=== PATIENT | male | born 1975 | race African-American/Black ===

== ENCOUNTER 2023-09-21 16:41 | Inpatient (IN) | payer OTHER ==
--- OUTSIDE RECORDS SUMMARY | 2023-09-21 16:44 | XMS REPORT | Continuity of Care Document ---
Author Name Unknown Address [address] [facility]. [address] [place] [address] [facility] thconnect Address [address] [facility] [address] [place] [address] Care Team Providers Care Actuarial Intern Name Role Phone ADELA KRUGER Attending Clinician Unavailable LIANE RICKS Attending Clinician Unavailable Ronda Cagle MD Attending Clinician [phone] RONDA CAGLE Attending Clinician Unavail able Only, Adc Test Attending Clinician Unavailable Liane Ricks MD Attending Clinician [phone] Doctor Unassigned, [place] Attending Clinician U navailable Gramm BAROMETERS CALIBRATOR, Evelin A Attending Clinician [phone] Daniel PAC, K Omar Attending Clinician [phone] Andrea Awad MD Attending Clinician [phone] Vikram Pichardo Attending Clinician [phone] LIANE RICKS Admitting Clinician Unavailable Ronda Cagle MD Admitting Clinician [phone] Andrea Awad MD Admitting Clinician [phone] Payers Payer Name Policy Type Policy Number Effective Date Expirati on Date Source [employer] [id number] 2017 00:00:00 AETNA 53 [id number] Common Sp ana - [facility] Problems Condition Name Condition Details Condition Category Status Onset Date Resolution Date Last Treatment Date Treating Clinician Comments Source Family history of colon cancer Family history of colon cancer Disease Active 4 00:00: 00 Overview: Formattin g of this note might be different from the original. Added automatic ally from request for surgery [id number] [facility] Perianal abscess Perianal abscess Disease Active 3- 00:00: 00 [facility] No known active problems No known active problems Disease [facility] Family history of prostate cancer Family history of malignant neoplasm of prostate Problem [facility] [place] of epididymis , single Problem [facility] [id number] Hydrocepha locele Problem [facility] Allergies, Adverse Reactions, Alerts Allergy Name Allergy Type Status Severity Reaction(s) Onset Date Inactive Date Treating Clinician Comments Source NO KNOWN ALLERGIE S Drug Class Active [facility] Social History Social Habit Start Date Stop Date Quantity Comments Source Exposure to SARS-CoV-2 (event) Not sure [facility] History of Tobacco Use Current Smoker [facility] Sex Assigned At [facility] Tobacco use and exposure 2020-12-28 00:00:00 2020-12-28 00:00:00 Never used [facility] Smoking Status Start Date Stop Date Source Current Smoker 2023-08-13 00:00:00 [facility] Unknown if ever smoked [facility] Medications Ordered Medication Name Filled Medication Name Start Date Stop Date Current Medication? Ordering Clinician Indication Dosage Frequency Signature (SIG) Comments Components Source simethicone (GAS RELIEF (SIMETHICON E)) 40 mg/0.6 mL drops 10-26 16:40: 00 10-26 20:02 :37 No PRN, Starting Thu10/26/20 at 1140, Until Thu10/26/20 at 1502, Routine, Intra-op [facility] pantoprazol e (PROTONIX) EC tablet 40 mg 09-04 14:00: 00 Yes 40mg 40 mg, Oral, DAILY, First dose on Thu09/04/20 at 0900, Until Discontinu ed, Routine [facility] acetaminoph en 500 mg tablet 09-04 00:00: 00 Yes [id number] 500mg Take 1 tablet by mouth every 8 (eight) hours as needed for Pain. [facility] amoxicillin -clavulanat e (AUGMENTIN) 875-125 mg per tablet 09-04 00:00: 00 09-15 04:59 :00 No [id number] 1{tbl} Take 1 tablet by mouth 2 (two) times daily for 10 days. [facility] HYDROcodone -acetaminop hen 10-325 mg tablet 09-04 00:00: 00 09-12 04:59 :00 No [id number] 1{tbl} Take 1 tablet by mouth every 6 (six) hours as needed for Pain (scale 7-10) for up to 7 days. Indication s: acute pain [facility] ibuprofen 800 mg tablet 09-04 00:00: 00 09-08 04:59 :00 No [id number] 800mg Take 1 tablet by mouth 3 (three) times daily with meals for 3 days. [facility] ibuprofen (IBU) tablet 800 mg 09-03 22:00: 00 Yes 800mg 800 mg, Oral, TID MEALS, First dose on Thu09/03/20 at 1700, Until Discontinu ed, Routine [facility] NaCl 0.9% (NS) IV infusion 1,000 mL 09-03 18:30: 00 09-04 17:58 :11 No 1000mL at 42 mL/hr, IV Infusion, CONTINUOUS , Starting Thu09/03/20 at 1330, Until Thu09/04/20 at 1258, Routine [facility] HYDROcodone -acetaminop hen (NORCO) 10-325 mg tablet 1 tablet 09-03 18:22: 30 Yes 1{tbl} 1 tablet, Oral, Q6HPRN, Starting Thu09/03/20 at 1322, Until Discontinu ed, Routine, Pain (scale 4-6) [facility] acetaminoph en (TYLENOL) tablet 500 mg 09-03 18:20: 26 Yes 500mg 500 mg, Oral, Q6HPRN, Starting Thu09/03/20 at 1320, Until Discontinu ed, Routine, Pain (scale 1-3) [facility] piperacilli n-tazobacta m (ZOSYN) 3.375 g in NaCl 0.9% (NS) 100 mL MINI-BAG 09-03 14:00: 00 Yes 3.375g 3.375 g, IV Piggyback, Q6H ABX, First dose (after last reorder) on Thu09/03/20 at 0900, Until Discontinu ed, 100 mL
Reas on for Anti-Infec tive: Documented Infection< br>Documen luke Infection Site: Skin / Soft Tissue
Duration of Therapy: 10 days [facility] enoxaparin (LOVENOX) injection 40 mg 09-03 14:00: 00 Yes 40mg 40 mg, Subcutaneo us, DAILY, First dose on Thu09/03/20 at 0900, Until Discontinu ed, [facility] sennos[facility]- docusate sodium (SENOKOT-S) 8.6-50 mg per tablet 1 tablet 09-03 13:00: 00 Yes 1{tbl} 1 tablet, Oral, BID, First dose on Thu09/03/20 at 0800, Until Discontinu ed, Routine [facility] ampicillin- sulbactam (UNASYN) 3 g in NaCl 0.9% (NS) 100 mL MINI-BAG 09-03 07:00: 00 09-03 12:46 :53 No 3g 3 g, IV Piggyback, Q6H ABX, First dose on Thu09/03/20 at 0200, Until Discontinu ed, 100 mL
Reas on for Anti-Infec tive: Empiric Therapy for Suspected Infection< br>Empiric Therapy Site: Skin / Soft tissue
Duration of therapy: 7 days [facility] nicotine (NICODERM) 21 mg/24 hr patch 1 Patch 09-03 05:00: 00 Yes 1{patch } 1 Patch, Topical, Administer over 24 Hours, Q24H, First dose on Thu09/03/20 at 0000, Until Discontinu ed, Routine [facility] NaCl 0.9% (NS) IV infusion 1,000 mL 09-03 04:00: 00 09-03 18:21 :55 No 1000mL at 125 mL/hr, IV Infusion, CONTINUOUS , Starting [place] 09/02/20 at 2300, Until Thu09/03/20 at 1321, Routine [facility] ondansetron (ZOFRAN (PF)) injection 4 mg 09-03 03:49: 14 Yes 4mg 4 mg, Slow IV Push, Q6HPRN, Starting [place] 09/02/20 at 2249, Until Discontinu ed, Routine, Nausea and Vomiting (N/V) [facility] HYDROcodone -acetaminop hen (NORCO 5) 5-325 mg tablet 1 tablet 09-03 03:49: 01 09-03 18:22 :43 No 1{tbl} 1 tablet, Oral, Q6HPRN, Starting [place] 09/02/20 at 2249, Until Thu09/03/20 at 1322, Routine, Pain (scale 4-6) [facility] morpHINE injection 4 mg 09-03 00:45: 00 09-02 23:38 :00 No 4mg 4 mg, Slow IV Push, ONCE, 1 dose, [place] 09/02/20 at 1945, STAT [facility] piperacilli n-tazobacta m (ZOSYN) 3.375 g in NaCl 0.9% (NS) 100 mL MINI-BAG 09-03 00:30: 00 09-03 00:03 :00 No 3.375g 3.375 g, IV Piggyback, ONCE, 1 dose, [place] 09/02/20 at 1930, 100 mL
Reas on for Anti-Infec tive: Documented Infection< br>Documen luke Infection Site: Skin / Soft Tissue
Duration of Therapy: 10 days [facility] iohexol (OMNIPAQUE 350 BULK-150 mL) injection 120 mL 09-02 22:15: 00 09-02 22:00 :00 No [id number] 120mL 120 mL, Intravenou s, ONCE, 1 dose, [place] 09/02/20 at 1715, Routine [facility] ondansetron (ZOFRAN (PF)) injection 4 mg 09-02 21:45: 00 09-02 20:52 :00 No 4mg 4 mg, Slow IV Push, ONCE, 1 dose, 09/02/20 at 1645, JESSICA [facility] morpHINE injection 4 mg 09-02 21:45: 00 09-02 20:52 :00 No 4mg 4 mg, Slow IV Push, ONCE, 1 dose, [place] 09/02/20 at 1645, STAT [facility] diazePAM (VALIUM) tablet 5 mg 08-22 05:30: 00 08-22 04:40 :00 No 5mg 5 mg, Oral, ONCE, 1 dose, Thu08/22/20 at 0030, JESSICA [facility] predniSONE (DELTASONE) tablet 40 mg 08-22 05:30: 00 08-22 04:40 :00 No 40mg 40 mg, Oral, ONCE, 1 dose, Thu08/22/20 at 0030, JESSICA [facility] ketorolac (TORADOL) injection 30 mg 08-22 05:30: 00 08-22 04:40 :00 No 30mg 30 mg, Intramuscu lar, ONCE, 1 dose, Thu08/22/20 at 0030, JESSICA
Fa culty member approving Restricted medication : VIKRAM REYES [facility] methocarbam oL 500 mg tablet 08-21 00:00: 00 Yes [id number] 500mg Take 1 tablet by mouth 4 (four) times daily. [facility] naproxen 500 mg tablet 08-21 00:00: 00 09-04 00:00 :00 No [id number] 500mg Take 1 tablet by mouth 2 (two) times daily with meals. [facility] predniSONE 20 mg tablet 16 00:00: 00 08-26 04:59 :00 No [id number] 20mg Take 1 tablet by mouth 2 (two) times daily for 4 days. [facility] fenofibrate micronized 134 mg capsule 12-23 00:00: 00 08-21 00:00 :00 No [id number] 134mg Take 134 mg by mouth daily. [facility] No Known Medications No Known Medications No [facility] No Known Medications No Known Medications No [facility] Vital Signs Vital Name Observation Time Observation Value Comments S ource height 2023-08-13 15:45:00 75 [in_i] Commo n [facility] weight 2023-08-13 15:45:00 224.4 [lb_av] Co [facility] temperature 2023-08-13 15:45:00 98.3 [degF] Com [facility] bmi 2023-08-13 15:45:00 28.05 kg/m2 Comm on [facility] oximetry 2023-08-13 15:45:00 93 % Commo n [facility] respiratory rate 2023-08-13 15:45:00 18 /min [facility] blood pressure systolic 2023-08-13 15:45:00 137 mm[Hg] [facility] blood pressure diastolic 2023-08-13 15:45:00 72 mm[Hg] [facility] height 2023-06-17 09:30:00 75 [in_i] Commo n [facility] weight 2023-06-17 09:30:00 231.2 [lb_av] Co [facility] temperature 2023-06-17 09:30:00 98.5 [degF] Com [facility] bmi 2023-06-17 09:30:00 28.89 kg/m2 Comm on [facility] oximetry 2023-06-17 09:30:00 98 % Commo n [facility] respiratory rate 2023-06-17 09:30:00 18 /min Common [facility] blood pressure systolic 2023-06-17 09:30:00 126 mm[Hg] [facility] blood pressure diastolic 2023-06-17 09:30:00 69 mm[Hg] [facility] Systolic blood pressure 2020-12-28 15:25:00 126 mm[Hg] [facility] Diastolic blood pressure 2020-12-28 15:25:00 80 mm[Hg] [facility] Heart rate 2020-12-28 15:25:00 85 /min [facility] Body temperature 2020-12-28 15:25:00 36.28 Leonela [facility] Respiratory rate 2020-12-28 15:25:00 14 /min [facility] Body weight 2020-12-28 15:25:00 106.142 kg [facility] BMI 2020-12-28 15:25:00 29.25 kg/m2 [facility] Oxygen saturation in Arterial blood by Pulse oximetry 2020-12-28 15:25:00 98 /min [facility] Systolic blood pressure 2020-10-26 17:37:00 116 mm[Hg] [facility] Diastolic blood pressure 2020-10-26 17:37:00 71 mm[Hg] [facility] Heart rate 2020-10-26 17:37:00 78 /min [facility] Respiratory rate 2020-10-26 17:37:00 16 /min [facility] Oxygen saturation in Arterial blood by Pulse oximetry 2020-10-26 17:37:00 99 /min [facility] Body temperature 2020-10-26 17:03:00 36.11 Leonela [facility] Body height 2020-10-11 16:12:00 190.5 cm [facility] Body weight 2020-10-11 16:12:00 104.5 kg [facility] BMI 2020-10-11 16:12:00 28.80 kg/m2 [facility] Systolic blood pressure 2020-10-26 17:03:00 91 mm[Hg] [facility] Diastolic blood pressure 2020-10-26 17:03:00 53 mm[Hg] [facility] Heart rate 2020-10-26 17:03:00 87 /min [facility] Body temperature 2020-10-26 17:03:00 36.11 Leonela [facility] Respiratory rate 2020-10-26 17:03:00 12 /min [facility] Oxygen saturation in Arterial blood by Pulse oximetry 2020-10-26 17:03:00 94 /min [facility] Body height 2020-10-11 16:12:00 190.5 cm [facility] Body weight 2020-10-11 16:12:00 104.5 kg [facility] BMI 2020-10-11 16:12:00 28.80 kg/m2 [facility] Systolic blood pressure 2020-09-24 14:57:00 115 mm[Hg] [facility] Diastolic blood pressure 2020-09-24 14:57:00 82 mm[Hg] [facility] Heart rate 2020-09-24 14:57:00 96 /min [facility] Body temperature 2020-09-24 14:57:00 37 Leonela [facility] Respiratory rate 2020-09-24 14:57:00 18 /min [facility] Body height 2020-09-24 14:57:00 190.5 cm [facility] Body weight 2020-09-24 14:57:00 104.509 kg [facility] BMI 2020-09-24 14:57:00 28.80 kg/m2 [facility] Systolic blood pressure 2020-09-04 16:15:00 140 mm[Hg] [facility] Diastolic blood pressure 2020-09-04 16:15:00 75 mm[Hg] [facility] Heart rate 2020-09-04 16:15:00 81 /min [facility] Body temperature 2020-09-04 16:15:00 36.11 Leonela [facility] Respiratory rate 2020-09-04 16:15:00 18 /min [facility] Oxygen saturation in Arterial blood by Pulse oximetry 2020-09-04 16:15:00 99 /min [facility] Body height 2020-09-03 01:43:00 190.5 cm [facility] Body weight 2020-09-03 01:43:00 104.599 kg [facility] BMI 2020-09-03 01:43:00 28.82 kg/m2 [facility] Systolic blood pressure 2020-08-22 04:06:00 142 mm[Hg] [facility] Diastolic blood pressure 2020-08-22 04:06:00 89 mm[Hg] [facility] Heart rate 2020-08-22 04:06:00 96 /min [facility] Body temperature 2020-08-22 04:06:00 37.11 Leonela [facility] Respiratory rate 2020-08-22 04:06:00 18 /min [facility] Body height 2020-08-22 04:06:00 190.5 cm [facility] Body weight 2020-08-22 04:06:00 104.327 kg [facility] BMI 2020-08-22 04:06:00 28.75 kg/m2 [facility] Oxygen saturation in Arterial blood by Pulse oximetry 2020-08-22 04:06:00 98 /min [facility] Procedures Procedure Date / Time Performed Performing Clinician Source PVR 2023-06-17 00:00:00 Common S [facility] COLONOSCOPY (ENDO) 2020-10-26 16:26:44 Kurtis Enriquez [facility] COLONOSCOPY 2020-10-26 16:17:00 Ronda Cagle [facility] ASSIGNMENT OF BENEFITS 2020-10-25 15:22:40 Docto r Unassigned, [place] [facility] ASSIGNMENT OF BENEFITS 2020-09-24 14:42:05 Docto r Unassigned, [place] [facility] INCISION AND DRAINAGE RECTAL ABSCESS 2020-09-03 15:58:00 Jeffrey Medellin [facility] US RETROPERITONEAL COMPLETE 2020-09-03 14:50:55 Cory Calloway [facility] WOUND CULTURE 2020-09-03 09:17:00 Cory Calloway [facility] BASIC METABOLIC PANEL (NA, K, CL, CO2, GLUCOSE, BUN, CREATININE, CA) 2020-09-03 07:29:00 Cory Calloway [facility] CBC WITH DIFF 2020-09-03 07:29:00 Cory Calloway [facility] URINALYSIS 2020-09-03 05:05:00 Cory Calloway [facility] URINE CULTURE 2020-09-03 05:05:00 Cory Calloway [facility] CREATININE, URINE RANDOM 2020-09-03 05:05:00 Richar Calloway [facility] SODIUM, URINE RANDOM 2020-09-03 05:05:00 Cory Calloway [facility] COVID-19 (ID NOW RAPID TESTING) 2020-09-02 23:34:00 Juju Crow [facility] LAB ONLY COVID INTERPRETATION 2020-09-02 23:34:00 Juju Crow [facility] CT ABDOMEN PELVIS W CONTRAST 2020-09-02 22:03:25 Juju Crow [facility] COMP. METABOLIC PANEL ([id number]) 2020-09-02 20:51:00 Juju Crow [facility] CBC WITH DIFF 2020-09-02 20:51:00 Juju Crow [facility] NOTICE OF PRIVACY PRACTICES 2020-09-02 18:05:58 Doctor Unassigned, [place] [facility] CONSENT/REFUSAL FOR DIAGNOSIS AND TREATMENT 2020-09-02 18:02:30 Doctor Unassigned, [place] [facility] NOTICE OF PRIVACY PRACTICES 2020-08-22 04:01:54 Doctor Unassigned, [place] [facility] CONSENT/REFUSAL FOR DIAGNOSIS AND TREATMENT 2020-08-22 03:59:38 Doctor Unassigned, [place] [facility] Encounters Start Date/Time End Date/Time Encounter Type Admission Type Attending Clinicians Care Facility Care Department Encounter ID Source 2023-06-17 08:49:01 Outpatient ADELA KRUGER [facility] [id number] [facility] 2021-04-07 15:20:12 Outpatient RICKSLIANE KLEIN [facility] DAIANA [id number] [facility] 2021-04-07 09:01:47 Emergency [facility] [id number] [facility] 2021-04-07 06:29:50 Emergency [facility] [id number] [facility] 2023-08-13 00:00:00 2023-08-13 00:00:00 OFFICE VISIT ESTAB PT LEVEL 3 [facility] [id number] [facility] 2023-06-17 00:00:00 2023-06-17 00:00:00 OFFICE VISIT NEW PT [facility]EVEL 3 [facility] [id number] [facility] 2020-12-28 10:12:48 2020-12-28 11:29:14 Office Visit Ronda Cagle [facility] [id number] [facility] 2020-12-28 10:15:00 2020-12-28 10:15:00 Outpatient RONDA ANDREW [facility] [id number] [facility] 2020-10-26 08:47:00 2020-10-26 13:02:00 Hospital Encounter Ronda Cagle [facility] [id number] [facility] 2020-10-26 11:00:00 2020-10-26 12:07:00 Surgery Ronda Cagle [facility] [id number] [id number] [facility] 2020-10-25 10:22:14 2020-10-25 10:37:14 Laboratory Only Only, Adc Test Liane Ricks [facility] [id number] [id number] [id number] [facility] 2020-10-25 08:15:00 2020-10-25 08:15:00 Outpatient R LIANE RICKS [facility] [id number] [facility] 2020-10-25 00:00:00 2020-10-25 00:00:00 Orders Only Doctor Unassigned, [place] [facility] [id number] [id number] [id number] [facility] 2020-10-23 00:00:00 2020-10-23 00:00:00 Prep For Surgery Evelin Matthews [facility] [id number] 4.2.7.2.686 [id number] [facility] 2020-10-23 00:00:00 2020-10-23 00:00:00 Telephone Evelin Matthews [facility] [id number] 4.2.7.2.686 [id number] [facility] 2020-09-25 00:00:00 2020-09-25 00:00:00 Prep For Surgery Evelin Matthews [facility] [id number] [id number] 4.2.7.2.686 [id number] [facility] 2020-09-24 09:42:29 2020-09-24 10:15:16 Office Visit Liane Ricks [facility] [id number] [id number] 4.2.7.2.686 [id number] [facility] 2020-09-24 09:45:00 2020-09-24 09:45:00 Outpatient R LIANE RICKS [facility] [id number] [facility] 2020-09-24 00:00:00 2020-09-24 00:00:00 Orders Only Doctor Unassigned, [place] [facility] [id number] [id number] 4.2.7.2.686 [id number] [facility] 2020-09-02 13:12:00 2020-09-04 14:47:00 Emergency Juju Crow Yaman [facility] [id number] [id number] 4.2.7.2.686 [id number] [facility] 2020-08-21 23:09:00 2020-08-21 23:59:00 Emergency Vikram Reyes Anahy [facility] [id number] [id number] 4.2.7.2.686 [id number] [facility] Results Test Description Test Time Test Comments Results Result Co mments Source [facility] [id number] 21:51:06COVID DMT InterpretationInterpretation/Recommendations: Molecular NAAT Tests for Active Infection with the SARS-CoV-2 Virus: The patient has currently tested negative for the SARS-CoV-2 virus that causes COVID-19 illness. This most likely indicates that the patient does not have an active infectionwith the SARS-CoV-2 virus. However, infection is not completely ruled out as the false negative rate for molecular NAAT testing using a nasopharyngeal sample can be up to 30%, mostly dependent on thetiming of sample collection in relation to illness onset and any deficiencies in sampling techniques. If the patient has symptoms concerning for COVID-19 illness, a repeat NAAT test (PCR, Rapid ID Now, etc.) should be performed, at which time the SARS-CoV-2 virus - if present - may have reached a detectable viral load (usually peaking by the end of the first week of symptoms). Tests for IgM and/or IgG Antibodies to the SARS-CoV-2 Virus: If the patient develops COVID-19 illness in the future, testing for IgM and IgG antibodies approximately 3 weeks after illness onset will likely indicate if the patient has produced antibodies to the SARS-CoV-2 virus. However, some patients may take longer to develop detectable antibodies, while some patients who were infected with SARS-CoV-2 may never develop antibodies. While antibodies to SARS-CoV-2 may provide some degree of immunity, at this time the strength and duration of the antibody response is unknown. ? ? Interpretation Result Comments:These interpretation comments are based upon all COVID-19 testing the patient has had at [facility], including molecular NAAT testing (more commonly known as PCR testing and Rapid ID Now testing) and antibody testing. It does not take into account any testing that a patient has had outside of the [facility] medical record. [facility] LABORATORY SERVICESCOVID [id number] Rapid ID NOW (no units) ? ? Date ? Value ? 09/02/2020 ? Not Detected ? [facility]OR[facility] SERVICESUnMethodist [facility] CenterUS RETROPERITONEAL [id number] 15:03:35Unremarkable renal ultrasound. No hydronephrosis or nephrolithiasis.ULTRASOUND RENAL INDICATION: JIN COMPARISON: 09/02/2020. Technique: Real-time grayscale and color Doppler evaluation ofretroperitoneal special attention paid to the kidneys and urinary bladder. FINDINGS: Right kidney measures 10.8 x5.0 x 5.2 cm. There is normal renal corticalechogenicity and corticomedullary differentiation. Few subcentimeterhypoattenuating lesions seen on same-day CT are not apparentsonographically. No hydronephrosis or renal calculi. There is qualitativelynormal perfusion on color doppler interrogation. Left kidney measures 10.7 x 5.7 x 4.8 cm. Few subcentimeter hypoattenuatinglesions seen on same-day CT are not apparent sonographically. There isnormal renal cortical echogenicity and corticomedullary differentiation. Nohydronephrosis or renal calculi. There is qualitatively normal perfusion oncolor doppler interrogation. Urinary bladder is normal for the degree of distention. [facility], Radiant Results Inft User - 09/03/2020 10:04 AM CDTULTRASOUND RENALINDICATION: AKICOMPARISON: 09/02/2020.Technique: Real-time grayscale and color Doppler evaluation ofretroperitoneal special attention paid to the kidneys and urinary bladder.FINDINGS:Right kidney measures 10.8 x 5.0 x 5.2 cm. There is normal renal corticalechogenicity and corticomedullary differentiation. Few subcentimeterhypoattenuating lesions seen on same-day CT are not apparentsonographically. No hydronephrosis or renal calculi. There is qualit ativelynormal perfusion on color doppler interrogation.Left kidney measures 10.7 x 5.7 x 4.8 cm. Few subcentimeter hypoattenuatinglesions seen on same-day CT are not apparent sonographically. There isnormal renal cortical echogenicity and corticomedullary differentiation. Nohydronephrosis or renal calculi. There is qualitatively normal perfusion oncolor doppler interrogation.Urinary bladder is normal for the degree of distention.IMPRESSIONUnremarkable renal ultrasound. No hydronephrosis or nephrolithiasis.[facility] (NA, K, CL, CO2, GLUCOSE, BUN, CREATININE, CA)2020-09-03 09:28:53* Test Item Value Reference Range Interpretation Comme nts NA (test code = 1802581176) 137 mmol/L 135-145 K (test code = 5356896251) 4.6 mmol/L 3.5-5.0 CL (test code = 9440646556) 105 mmol/L 98-108 CO2 TOTAL (test code = 3319567330) 26 mmol/L 23-31 AGAP (test code = 5030306728) 2-16 BUN (test code = 9503340997) 20 mg/dL 7-23 GLUCOSE (test code = 2907515093) 130 mg/dL 70-110 H CREATININE (test code = 7874671952) 1.19 mg/dL 0.60-1.25 CALCIUM (test code = 8715405008) 9.4 mg/dL 8.6-10.6 eGFR Calculation (Non-) (test code = 2784236047) mL/min/1.73m2 eGFR Calculation () (test code = 6856041660) mL/min/1.73m2 CIPRIANO (test code = CIPRIANO) Association of Glomerular Filtration Rate (GFR) and Staging of Kidney Disease* + --+ --+ ------+| GFR (mL/min/1.73 m2) ?| With Kidney Damage ?| ?Without Kidney Damage+ --------+ --------+ +| ?>90 ?| ?Stage one ?| ? Normal ?+ ---+ ---+ -------+| ?60-89 ?| ?Stage two ?| ? Decreased GFR ? + --+ --+ ------+| ?30-59 ?| ?Stage three ?| ? Stage three ? + --+ --+ ------+| ?15-29 ?| ?Stage four ? | ? Stage four ?+ ---+ ---+ -------+| ?<15 (or dialysis) ? ?| ?Stage five ? | ? Stage five ?+ ---+ ---+ -------+ *Each stage assumes the associated GFR level has been in effect for at least three months. ?Stages 1 to 5, with or without kidney disease, indicate chronic kidney disease. Notes: Determination of stages one and two (with eGFR >59mL/min/1.73 m2) requires estimation of kidney damage for at least three months as defined by structural or functional abnormalities of the kidney, manifested by either:Pathological abnormalities or Markers of kidney damage (including abnormalities in the composition of the blood or urine or abnormalities in imaging tests). Lab Interpretation (test code = 49844-1) Abnormal [facility] with [id number] 09:14:51* Test Item Value Reference Range Interpretation Comme nts WBC (test code = 6690-2) See_Comment [Automated messa ge] The system which generated this result transmitted reference range: 4.20 - 10.70 10*3/?L. The reference range was not used to interpret this result as normal/abnormal. RBC (test code = 789-8) See_Comment L [Automated messa ge] The system which generated this result transmitted reference range: 4.26 - 5.52 10*6/?L. The reference range was not used to interpret this result as normal/abnormal. HGB (test code = 718-7) 12.6 g/dL 12.2-16.4 HCT (test code = 4544-3) 38.1 % 38.4-49.3 L MCV (test code = 787-2) 92.0 fL 81.7-95.6 MCH (test code = 785-6) 30.4 pg 26.1-32.7 MCHC (test code = 786-4) 33.1 g/dL 31.2-35.0 RDW-SD (test code = 09005-7) 47.2 fL 38.5-51.6 RDW-CV (test code = 788-0) 13.8 % 12.1-15.4 PLT (test code = 777-3) See_Comment [Automated messa ge] The system which generated this result transmitted reference range: 150 - 328 10*3/?L. The reference range was not used to interpret this result as normal/abnormal. MPV (test code = 99014-1) 10.2 fL 9.8-13.0 NRBC/100 WBC (test code = 7101133161) See_Comment [Automated Reduce Data ssage] The system which generated this result transmitted reference range: 0.0 - 10.0 /100 WBCs. The reference range was not used to interpret this result as normal/abnormal. NRBC x10^3 (test code = 4889147889) <0.01 See_Comment [Automated messa ge] The system which generated this result transmitted reference range: 10*3/?L. The reference range was not used to interpret this result as normal/abnormal. GRAN MAT (NEUT) % (test code = 770-8) 66.6 % IMM GRAN % (test code = 3479401143) 0.60 % LYMPH % (test code = 736-9) 25.0 % MONO % (test code = 5905-5) 5.6 % EOS % (test code = 713-8) 1.7 % BASO % (test code = 706-2) 0.5 % GRAN MAT x10^3(ANC) (test code = 0138369665) 6.85 10*3/uL 1.99-6.95 IMM GRAN x10^3 (test code = 2541946249) 0.06 10*3/uL 0.00-0.06 LYMPH x10^3 (test code = 731-0) 2.57 10*3/uL 1.09-3.23 MONO x10^3 (test code = 742-7) 0.58 10*3/uL 0.36-1.02 EOS x10^3 (test code = 711-2) 0.17 10*3/uL 0.06-0.53 BASO x10^3 (test code = 704-7) 0.05 10*3/uL 0.01-0.09 Lab Interpretation (test code = 22230-7) [facility] 05[facility]27:01* Test Item Value Reference Range Interpretation Comme nts APPEARANCE (test code = 9190513427) Clear Clear COLOR (test code = 5036044964) Yellow Yellow PH (test code = 3332371054) 4.8-8.0 SP GRAVITY (test code = 8913986504) 1.003-1.030 GLU U QUAL (test code = 7731123373) 100 mg/dL Negative A BLOOD (test code = 7364536063) Negative Negative KETONES (test code = 9636507312) Negative Negative PROTEIN (test code = 2887-8) Negative Negative UROBILIN (test code = 5036358056) 0.2 mg/dL See_Comment [Automated mig33a ge] The system which generated this result transmitted reference range: 0-1.0 mg/dL. The reference range was not used to interpret this result as normal/abnormal. BILIRUBIN (test code = 4498304569) Negative Negative NITRITE (test code = 8773594352) Negative Negative LEUK ZAK (test code = 6735280462) Negative Negative RBC/HPF (test code = 0779204423) See_Comment [Automated mig33a ge] The system which generated this result transmitted reference range: 0 - 3 HPF. The reference range was not used to interpret this result as normal/abnormal. WBC/HPF (test code = 0617937938) See_Comment [Automated mig33a ge] The system which generated this result transmitted reference range: 0 - 5 HPF. The reference range was not used to interpret this result as normal/abnormal. BACTERIA (test code = 4132488595) Negative Negative Lab Interpretation (test code = 28418-3) [facility], URINE [id number] 05:25:16* Test Item Value Reference Range Interpretation Comme nts CREAT U (test code = 6411008709) 73.3 mg/dL [facility] HospitalSODI[facility], URINE [id number] 05:20:55* Test Item Value Reference Range Interpretation Comme nts NA URINE (test code = 8347691971) 71 mmol/L [facility] HospitalCOVID-[facility] (ID NOW RAPID TESTING)2020-09-02 23:58:34* Test Item Value Reference Range Interpretation Comme nts SARS-CoV-2 Rapid ID NOW (test code = 01701-7) Not Detected Not Detected CIPRIANO (test code = CIPRIANO) ID NOW COVID-19 As say is an isothermal nucleic acid amplification test intended for the qualitative detection of nucleic acid from SARS-CoV-2 viral RNA in nasopharyngeal (GEOTHERMAL [employer]LECT[employer]ICAL [employer]ER) specimens. It is used under Emergency Use Authorization (EUA) by FDA. The limit of detection (LOD) of the assay is 125 Genome Equivalents/mL. A positive result is indicative of the presence of SARS-CoV-2 RNA. ?Clinical correlation with patient history and other diagnostic information is necessary to determine patient infection status. A negative (Not Detected) result does not preclude SARS-CoV-2 infection. In patients with clinical symptoms and other tests that are consistent with SARS-CoV-2 infection, negative results should be treated as presumptive negative and a new specimen should be tested with alternative PCR molecular test. Invalid: Please collect a new specimen for repeat patient testing if clinically indicated. Lab Interpretation (test code = 04336-6) Normal [facility]CT [facility] W [id number] 22:45:42Addendum by Dash Walsh MD on 09/02/2020 6:06 PMAddendum: An additional series through the lower pelvis was obtained. Thisseries demonstrates a 3.5 x 2.3 cm peripherally enhancing fluid collectionadjacent to the anus compatible with a perianal abscess. Slight adjacentcellulitic changes are present. No definite involvement of the rectum isidentified. IMPRESSION:1. A 3.5 cm perianal abscess is identified. RL: [address] evidence for acute abnormality within the abdomen and pelvis isvisualized. Specifically, no evidence for acute inflammatory process orappendicitis is present.2. Prominent right inguinal lymph nodesare likely reactive in nature.3. Bilateral renal cysts are present. RL: 2831 ORDERING PHYSICIAN: Juju CROW ABDOMEN AND PELVIS CT WITH INTRAVENOUS CONTRAST. DATE: ?09/02/2020 CLINICAL INDICATIONS: ?Abdominal pain. TECHNIQUE: ?Axialcomputed tomographic images of the abdomen and pelviswere performed after administration of 100 cc of Isovue-[address] scan was performed according to ALARA (As Low as Reasonably Achievable). COMPARISON: ?None. Abdomen findings: The lung bases are clear. The cardiac apex isunremarkable. The liver, spleen, pancreas, gallbladder and adrenal glands have anunremarkable contrast enhanced appearance. Bilateral renal cysts arepresent. The stomach, small bowel and colon demonstrate no evidence for obstructionor inflammation. A normal appendix is present in right lower quadrant. No adenopathy or free fluid are identified in the abdomen. No acute osseousabnormality is demonstrated. Pelvis findings: The small bowel and colon are normal caliber. The urinarybladder demonstrates no abnormality. The prostate gland is within normallimits of size. No free fluid is present in the pelvis. Prominent rightinguinal lymph nodes may be reactive in nature. No acute osseousabnormality is demonstrated. [facility], Radiant Results Inft User - 09/02/2020 5:46 PM CDTORDERING PHYSICIAN: K OMAR BILYEUABDOMENAND PELVIS CT WITH INTRAVENOUS CONTRAST.DATE: 09/02/2020LINICAL INDICATIONS: Abdominal pain.TECHNIQUE: Axial computed tomographic images of the abdomen and pelviswere performed after administration of 100 cc of Isovue-[address] scan was performed according to ALARA (As Low as Reasonably Achievable).COMPARISON: None.Abdomen findings: The lung bases are clear. The cardiac apex isunremarka ble.The liver, spleen, pancreas, gallbladder and adrenal glands have anunremarkable contrast enhanced appearance. Bilateral renal cysts arepresent.The stomach, small bowel and colon demonstrate no evidence for obstructionor inflammation. A normal appendix is present in right lower quadrant.No adenopathy or free fluid are identified in the abdomen. No acute osseousabnormality is demonstrated.Pelvis findings: The small bowel and colon are normal caliber. The urinarybladder demonstrates no abnormality. The prostate gland is within normallimits of size. No free fluid is present in the pelvis. Prominent rightinguinal lymph nodes may be reactive in nature. No acute osseousabnormality is demonstrated.IMPRESSION1. No CT evidence for acute abnormality within the abdomen and pelvis isvisualized. Specifically, no evidence for acute inflammatory process orappendicitis is present.2. Prominent right inguinal lymph nodes are likely reactive in nature.3. Bilateral renal cysts are present.RL: 2831 [facility] METABOLIC PANEL (85163) 2020-09-02 21:41:08* Test Item Value Reference Range Interpretation Comme nts NA (test code = 7040454369) 138 mmol/L 135-145 K (test code = 2882242573) 4.8 mmol/L 3.5-5.0 CL (test code = 1134071781) 102 mmol/L 98-108 CO2 TOTAL (test code = 4865707504) 31 mmol/L 23-31 AGAP (test code = 6791286213) 2-16 BUN (test code = 5997374108) 21 mg/dL 7-23 GLUCOSE (test code = 2726403797) 126 mg/dL 70-110 H CREATININE (test code = 7047019328) 1.47 mg/dL 0.60-1.25 H TOTAL BILI (test code = 8813863546) 0.6 mg/dL 0.1-1.1 CALCIUM (test code = 0228743904) 9.6 mg/dL 8.6-10.6 T PROTEIN (test code = 2403470778) 6.9 g/dL 6.3-8.2 ALBUMIN (test code = 5966577565) 4.3 g/dL 3.5-5.0 ALK PHOS (test code = 1081521302) 69 U/L 34-122 ALTv (test code = 1742-6) 23 U/L 5-50 AST(SGOT) (test code = 4749018485) 24 U/L 13-40 eGFR Calculation (Non-) (test code = 2888960110) mL/min/1.73m2 eGFR Calculation () (test code = 7113607675) mL/min/1.73m2 CIPRIANO (test code = CIPRIANO) Association of Glomerular Filtration Rate (GFR) and Staging of Kidney Disease* + --+ --+ ------+| GFR (mL/min/1.73 m2) ?| With Kidney Damage ?| ?Without Kidney Damage+ --------+ --------+ +| ?>90 ?| ?Stage one ?| ? Normal ?+ ---+ ---+ -------+| ?60-89 ?| ?Stage two ?| ? Decreased GFR ? + --+ --+ ------+| ?30-59 ?| ?Stage three ?| ? Stage three ? + --+ --+ ------+| ?15-29 ?| ?Stage four ? | ? Stage four ?+ ---+ ---+ -------+| ?<15 (or dialysis) ? ?| ?Stage five ? | ? Stage five ?+ ---+ ---+ -------+ *Each stage assumes the associated GFR level has been in effect for at least three months. ?Stages 1 to 5, with or without kidney disease, indicate chronic kidney disease. Notes: Determination of stages one and two (with eGFR >59mL/min/1.73 m2) requires estimation of kidney damage for at least three months as defined by structural or functional abnormalities of the kidney, manifested by either:Pathological abnormalities or Markers of kidney damage (including abnormalities in the composition of the blood or urine or abnormalities in imaging tests). Lab Interpretation (test code = 69393-3) [facility] WITH [id number] 21:22:46* Test Item Value Reference Range Interpretation Comme nts WBC (test code = 6690-2) See_Comment H [Automated messa ge] The system which generated this result transmitted reference range: 4.20 - 10.70 10*3/?L. The reference range was not used to interpret this result as normal/abnormal. RBC (test code = 789-8) See_Comment L [Automated messa ge] The system which generated this result transmitted reference range: 4.26 - 5.52 10*6/?L. The reference range was not used to interpret this result as normal/abnormal. HGB (test code = 718-7) 13.0 g/dL 12.2-16.4 HCT (test code = 4544-3) 38.2 % 38.4-49.3 L MCV (test code = 787-2) 90.7 fL 81.7-95.6 MCH (test code = 785-6) 30.9 pg 26.1-32.7 MCHC (test code = 786-4) 34.0 g/dL 31.2-35.0 RDW-SD (test code = 79260-7) 45.8 fL 38.5-51.6 RDW-CV (test code = 788-0) 13.7 % 12.1-15.4 PLT (test code = 777-3) See_Comment [Automated mig33a ge] The system which generated this result transmitted reference range: 150 - 328 10*3/?L. The reference range was not used to interpret this result as normal/abnormal. MPV (test code = 77290-6) 10.2 fL 9.8-13.0 NRBC/100 WBC (test code = 5139956821) See_Comment [Automated Reduce Data ssage] The system which generated this result transmitted reference range: 0.0 - 10.0 /100 WBCs. The reference range was not used to interpret this result as normal/abnormal. NRBC x10^3 (test code = 1833728898) <0.01 See_Comment [Automated messa ge] The system which generated this result transmitted reference range: 10*3/?L. The reference range was not used to interpret this result as normal/abnormal. GRAN MAT (NEUT) % (test code = 770-8) 71.2 % IMM GRAN % (test code = 2392005899) 0.80 % LYMPH % (test code = 736-9) 22.0 % MONO % (test code = 5905-5) 4.1 % EOS % (test code = 713-8) 1.5 % BASO % (test code = 706-2) 0.4 % GRAN MAT x10^3(ANC) (test code = 6491898898) 8.35 10*3/uL 1.99-6.95 H IMM GRAN x10^3 (test code = 9095463320) 0.09 10*3/uL 0.00-0.06 H LYMPH x10^3 (test code = 731-0) 2.58 10*3/uL 1.09-3.23 MONO x10^3 (test code = 742-7) 0.48 10*3/uL 0.36-1.02 EOS x10^3 (test code = 711-2) 0.17 10*3/uL 0.06-0.53 BASO x10^3 (test code = 704-7) 0.05 10*3/uL 0.01-0.09 Lab Interpretation (test code = 27014-5) [facility]normal [facility]"
[2023-09-21] MEDS ORDERED: HYDROCODONE/APAP 7.5/325 MG TAB ONE (17:45)
[2023-09-21] MEDS ORDERED: LIDOCAINE 1% MPF 5 ML VIAL ONE (18:27)
[2023-09-21 19:41] LABS: Absolute Eosinophils 0.1 K/uL (0-0.5); Absolute Lymphocytes (CBC) 2.5 K/uL (0.7-4.9); Absolute Monocytes 0.6 K/uL (0.1-1.3); Absolute Neutrophil 8.1 K/uL (1.8-8.0); Basophils % 0.4 % (0-1.3); Eosinophils % 1.1 % (0-4.4); Hematocrit 37.4 % (39.6-49.0); Hemoglobin 12.4 g/dL (13.6-17.9); Lymphocytes % 21.7 % (15.3-44.8); MCH 31.2 pg (27.0-35.0); MCHC 33.2 g/dL (32.0-36.0); MCV 93.9 fL (80-100); MPV 7.7 fL (7.6-11.3); Monocytes % 5.4 % (3.3-12.3); Neutrophils % 71.4 % (41.7-73.7); Platelets 240 thou/uL (152-406); RBC Red Blood Cell Count 3.98 M/uL (4.33-5.43); Red Cell Distribution Width 14.1 % (12.1-15.2)
[2023-09-21 19:42] LABS: Anion Gap 7.1 mEq/L (5.0-15.0); Potassium 4.1 mEq/L (3.5-5.1)
--- NOTE | 2023-09-21 21:11 | RAD REPORT ---
EXAM DESCRIPTION: CT - Abdomen Pelvis W Contrast - 09/21/2023 8:35 pm CLINICAL HISTORY: Right buttock pain. R/o abscess COMPARISON: No comparisons TECHNIQUE: Thin cut axial CT imaging of the abdomen and pelvis was performed following intravenous a dministration of 100 mL Isovue 300. Multiplanar reformats were generated and reviewed. All CT scans are performed using dose optimization technique as appropriate and may include automated exposure control or mA/KV adjustment according to patient size. FINDINGS: No suspicious findings in the lung bases. The liver, spleen, adrenal glands, and pancreas show no suspicious findings. Gallbladder is somewhat contracted limiting evaluation. Symmetric renal function is seen with no hydronephrosis or suspicious renal mass. Small cortical hypo attenuating lesions bilaterally less than 1 cm, not well characterized, but favored to represent smal l cysts. No dilated bowel loops or bowel wall thickening. Colonic diverticulosis. Ill-defined ovoid collection with adjacent soft tissue thickening and fat stranding along the right p osterolateral aspect of the perineum, at or slightly below the level of the anal orifice, measuring 2 .8 x 1.1 cm. Mild fat stranding along the right aspect of the upper anal canal, about the level of th e pelvic floor. No free air, free fluid or inflammatory stranding. No hernia, mass or bulky lymphaden opathy. The urinary bladder is without significant finding. Moderate-sized left hydrocele. No suspicious bony findings. IMPRESSION: No acute intra-abdominal process. Soft tissue thickening along the right posterolateral aspect of the perineum with an ill-defined flui d collection measuring 2.8 x 1.1 cm, suggestive of a perianal abscess. Mild inflammatory changes exte nd about the level of the pelvic floor right of midline, without other components of fluid collection . Other incidental findings as above.
--- NOTE | 2023-09-21 21:38 | ER ---
Nurse's Notes [facility] Name: Liborio Solis Jr Age: 48 yrs Sex: Male : 1975 Arrival Date: 09/21/2023 Time: 16:41 Bed 17 Private MD: Diagnosis: Perianal abscess Presentation: 09/20 17:40 Chief complaint: Patient states: Abscess to right buttock, has had it drained twice in [facility] the past, about 4 and 1 year ago, started bothering again this week, getting worse. Coronavirus screen: Vaccine status: Patient reports being unvaccinated. Ebola Screen: Patient denies travel to an Ebola-affected area in the 21 days before illness onset. Initial Sepsis Screen: Does the patient meet any 2 criteria? HR > 90 bpm. No. Patient's initial sepsis screen is negative. Does the patient have a suspected source of infection? No. Patient's initial sepsis screen is negative. Risk Assessment: Do you want to hurt yourself or someone else? Patient reports no desire to harm self or others. Onset of symptoms was September 2023. 17:40 Method Of Arrival: Ambulatory [facility] 17:40 Acuity: FRANCOISE 4 [facility] Triage Assessment: 17:44 General: Appears in no apparent distress. uncomfortable, Behavior is calm, cooperative, nj appropriate for age. Pain: Complains of pain in buttocks Pain currently is 10 out of 10 on a pain scale. Derm: Abscess located on buttocks. Historical: - Allergies: 17:43 No Known Allergies; nj1 - PMHx: 17:43 None; nj1 - Immunization history:: Client reports receiving the 2nd dose of the Covid vaccine. - Infectious Disease History:: Denies. - Social history:: Smoking status: Patient reports the use of cigarette tobacco products, smokes one-half pack cigarettes per day. Screenin:15 Abuse screen: Denies threats or abuse. Denies injuries from another. 7 19:15 [facility] ED Fall Risk Assessment (Adult) History of falling in the last 3 months, jw7 including since admission No falls in past 3 months (0 pts) Confusion or Disorientation No (0 pts) Intoxicated or Sedated No (0 pts) Impaired Gait No (0 pts) Mobility Assist Device Used No (0 pt) Altered Elimination No (0 pt) Score/Fall Risk Level 0 - 2 = Low Risk Oriented to surroundings, Maintained a safe environment, Educated pt \T\ family on fall prevention, incl call for assistance when getting out of bed. Nutritional screening: No deficits noted. Tuberculosis screening: No symptoms or risk factors identified. Assessment: 19:00 General: Appears in no apparent distress. uncomfortable, Behavior is calm, cooperative. jw7 19:00 Pain: Complains of pain in buttocks Pain does not radiate. Pain currently is 5 out of jw7 10 on a pain scale. Quality of pain is described as burning, stinging, Is intermittent, Alleviated by medications, Aggravated by repositioning. Neuro: Level of Consciousness is awake, alert, obeys commands, Oriented to person, place, time, situation. Cardiovascular: Heart tones S1 S2 present Capillary refill < 3 seconds Clubbing of nail beds is absent JVD is absent Patient's skin is warm and dry. Respiratory: Airway is patent Trachea midline Respiratory effort is even, unlabored, Respiratory pattern is regular, symmetrical, Breath sounds are clear bilaterally. GI: Abdomen is flat, non-distended, Bowel sounds present X 4 quads. Abd is soft and non tender X 4 quads. : No deficits noted. No signs and/or symptoms were reported regarding the genitourinary system. EENT: No deficits noted. No signs and/or symptoms were reported regarding the EENT system. Derm: Skin is intact, is healthy with good turgor, Skin is dry, Skin is normal, Skin temperature is warm. Musculoskeletal: Circulation, motion, and sensation intact. Range of motion: intact in all extremities. 20:00 Reassessment: Patient appears in no apparent distress at this time. No changes from jw7 previously documented assessment. Patient and/or family updated on plan of care and expected duration. Pain level reassessed. Patient is alert, oriented x 3, equal unlabored respirations, skin warm/dry/pink. 21:00 Reassessment: Patient appears in no apparent distress at this time. No changes from jw7 previously documented assessment. Patient and/or family updated on plan of care and expected duration. Pain level reassessed. Patient is alert, oriented x 3, equal unlabored respirations, skin warm/dry/pink. 22:00 Reassessment: Patient appears in no apparent distress at this time. No changes from jw7 previously documented assessment. Patient and/or family updated on plan of care and expected duration. Pain level reassessed. Patient is alert, oriented x 3, equal unlabored respirations, skin warm/dry/pink. 22:00 General: Pt Admitted, see [facility] for charting and vital signs. jw7 Vital Signs: 17:40 BP 141 / 80; Pulse 95; Resp 17; Temp 97.3(TE); Pulse Ox 100% on R/A; Weight 102.06 kg; nj1 Height 6 ft. 3 in. ; Pain 10/10; 19:00 BP 133 / 92; Pulse 109; Resp 18 S; Pulse Ox 97% on R/A; jw7 20:00 BP 124 / 88; Pulse 103; Resp 18 S; Pulse Ox 95% on R/A; jw7 21:00 BP 122 / 75; Pulse 102; Resp 17 S; Pulse Ox 96% on R/A; jw7 22:00 BP 137 / 80; Pulse 75; Resp 16 S; Pulse Ox 98% on R/A; jw7 17:40 Body Mass Index 28.12 (102.06 kg, 190.5 cm) nj1 17:40 Pain Scale: Adult [facility] ED Course: 16:44 Patient arrived in ED. im 16:58 Bettie Chappell FNP-C is PHCP. kb 16:58 Mike Zamora MD is Attending Physician. kb 17:43 Triage completed. nj1 17:44 Arm band placed on right wrist. nj1 18:24 Patient placed in an exam room, on a stretcher. db 19:15 Patient has correct armband on for positive identification. Bed in low position. Call [facility] light in reach. Side rails up X 1. Provided Education on: Use of Call LIght. 19:25 Inserted saline lock: 22 gauge in right antecubital area, using aseptic technique. vk 19:26 Basic Metabolic Panel Sent. vk 19:26 CBC with Diff Sent. vk 20:24 Rebecca Payne, IGOR is Primary Nurse. jw7 20:37 CT Abd/Pelvis - IV Contrast Only In Process Unspecified. EDMS 21:38 Elan Rodriguez MD is Hospitalizing Provider. kb 22:00 No provider procedures requiring assistance completed. Patient admitted, IV remains in jw7 place. Administered Medications: 17:47 Drug: Hydrocodone-Acetaminophen PO (7.5 mg-325 mg) 1 tabs PO once Route: PO; nj1 23:23 Follow up: Response: No adverse reaction; Marked relief of symptoms; Pain is decreased jw7 22:00 Drug: Piperacillin-Tazobactam IVPB 3.375 grams IVPB once over 60 mins; (mix in NS 100 jw7 mL) Route: IVPB; Infused Over: 60 mins; Site: right antecubital; 23:23 Follow up: Response: No adverse reaction; IV Status: Completed infusion; IV Intake: jw7 100ml 22:00 Drug: NS 0.9% IV 1000 ml IV at 125 ml/hr continuous Route: IV; Rate: 125 ml/hr; Site: jw7 right antecubital; 23:23 Follow up: Response: No adverse reaction; IV Status: Infusion continued upon admission; jw7 IV Intake: 125ml 22:33 Not Given (Other Intervention Used): lidocaine(1 %) 1 vials 5 ml Infiltration once; to jw7 bedside Medication: 22:00 VIS not applicable for this client. jw7 Intake: 23:23 IV: 100ml; Total: 100ml. jw7 23:23 IV: 125ml; Total: 225ml. jw7 Outcome: 21:38 Decision to Hospitalize by Provider. kb 22:00 Admitted to ER Hold. Please see [facility] for further documentation. jw7 22:00 Condition: stable 22:00 Instructed on the need for admit, Demonstrated understanding of instructions, 09/21 11:15 Patient left the ED. ph Signatures: Dispatcher [employer] EDOH Bettie Chappell, ANTONY GALINDO-Sonia Tenorio RN RN Rebecca Payne RN RN jw7 Aurelia Min, IGOR COSTA María Bills RN RN nj1 Agnes Arreola Vivian vk
--- NOTE | 2023-09-21 21:38 | EDPHYS ---
Physician Documentation [facility] Name: Liborio Solis Jr Age: 48 yrs Sex: Male : 1975 Arrival Date: 09/21/2023 Time: 16:41 Bed 17 Private MD: ED Physician Mike Zamora HPI: 09/20 17:15 This 48 yrs old Black Male presents to ER via Unassigned with complaints of Abcess on kb buttock. 17:16 Pt is a 48 year old male who presents for abscess to right buttock that started one kb week ago. States he had one in the same spot a few years ago and it had to be lanced. Denies fever. Historical: - Allergies: 17:43 No Known Allergies; nj1 - PMHx: 17:43 None; nj1 - Immunization history:: Client reports receiving the 2nd dose of the Covid vaccine. - Infectious Disease History:: Denies. - Social history:: Smoking status: Patient reports the use of cigarette tobacco products, smokes one-half pack cigarettes per day. ROS: 17:16 Constitutional: As per HPI kb Exam: 17:16 Constitutional: This is a well developed, well nourished patient who is awake, alert, kb and in no acute distress. Head/Face: Normocephalic, atraumatic. ENT: Moist Mucous membranes Cardiovascular: Regular rate Respiratory: Respirations even and unlabored. No increased work of breathing. Talking in full sentences MS/ Extremity: Pulses equal, no cyanosis. Neurovascular intact. Full, normal range of motion. Neuro: Awake and alert, GCS 15, oriented to person, place, time, and situation. Moves all extremities. Normal gait. 19:37 Skin: abscess, that is moderate sized, of the gluteal cleft, with induration, at 3 kb o'clock, Vital Signs: 17:40 BP 141 / 80; Pulse 95; Resp 17; Temp 97.3(TE); Pulse Ox 100% on R/A; Weight 102.06 kg; nj1 Height 6 ft. 3 in. ; Pain 10/10; 19:00 BP 133 / 92; Pulse 109; Resp 18 S; Pulse Ox 97% on R/A; jw7 20:00 BP 124 / 88; Pulse 103; Resp 18 S; Pulse Ox 95% on R/A; jw7 21:00 BP 122 / 75; Pulse 102; Resp 17 S; Pulse Ox 96% on R/A; jw7 22:00 BP 137 / 80; Pulse 75; Resp 16 S; Pulse Ox 98% on R/A; jw7 17:40 Body Mass Index 28.12 (102.06 kg, 190.5 cm) nj1 17:40 Pain Scale: Adult nj1 MDM: 16:58 Patient medically screened. kb 17:17 Differential diagnosis: abscess, allergic reaction, cellulitis, insect bite. Data kb reviewed: vital signs, nurses notes. 21:37 Consideration of Admission/Observation Patient was admitted/placed on observation. kb Escalation of care including admission/observation considered. Management of patient was discussed with the following: [employer] Service Estimator: Dr Diaz accepts pt for consult. Wants pt admitted to hospitalist, npo and on zosyn. Counseling: I had a detailed discussion with the patient and/or guardian regarding the historical points, exam findings, and any diagnostic results supporting the discharge/admit diagnosis, lab results, radiology results, the need for further work-up and treatment in the hospital. 21:37 Management of patient was discussed with the following: Hospitalist: Dr Rodriguez accepts kb pt for admission. 09/20 18:56 Order name: CBC with Diff; Complete Time: 19:47 kb 09/20 18:56 Order name: Basic Metabolic Panel; Complete Time: 19:45 kb 09/20 21:45 Order name: Urinalysis w/ reflexes EDMS 09/20 21:45 Order name: CBC with Automated Diff EDMS 09/20 21:45 Order name: CBC with Automated Diff EDMS 09/20 21:45 Order name: Comprehensive Metabolic Panel EDMS 09/20 21:45 Order name: Comprehensive Metabolic Panel EDMS 09/20 18:56 Order name: CT Abd/Pelvis - IV Contrast Only; Complete Time: 21:20 kb 09/20 17:17 Order name: I\T\D Setup; Complete Time: 22:33 kb 09/20 18:56 Order name: IV Start; Complete Time: 20:25 kb Administered Medications: 17:47 Drug: Hydrocodone-Acetaminophen PO (7.5 mg-325 mg) 1 tabs PO once Route: PO; nj1 23:23 Follow up: Response: No adverse reaction; Marked relief of symptoms; Pain is decreased jw7 22:00 Drug: Piperacillin-Tazobactam IVPB 3.375 grams IVPB once over 60 mins; (mix in NS 100 jw7 mL) Route: IVPB; Infused Over: 60 mins; Site: right antecubital; 23:23 Follow up: Response: No adverse reaction; IV Status: Completed infusion; IV Intake: jw7 100ml 22:00 Drug: NS 0.9% IV 1000 ml IV at 125 ml/hr continuous Route: IV; Rate: 125 ml/hr; Site: jw7 right antecubital; 23:23 Follow up: Response: No adverse reaction; IV Status: Infusion continued upon admission; jw7 IV Intake: 125ml 22:33 Not Given (Other Intervention Used): lidocaine(1 %) 1 vials 5 ml Infiltration once; to jw7 bedside Disposition Summary: 09/21/23 21:38 Hospitalization Ordered Notes: Hospitalization Status: Observation kb Provider: Elan Rodriguez Condition: Stable kb Problem: new kb Symptoms: are unchanged kb Bed/Room Type: Standard Location: [facility] ER HOLD(09/21/23 22:22) [facility] Room Assignment: ERHOLD-(09/21/23 22:22) eb1 Diagnosis - Perianal abscess kb Forms: - Medication Reconciliation Form kb - SBAR form kb - Leadership Thank You Letter kb Addendum: 09/23/2023 13:14 I was immediately available for consultation during this patient's visit. I did not e c2 personally see the patient or discuss the patient with the FLOR. . Signatures: Dispatcher [employer] EDAZ Bettie Chappell, GORE STITCHER-C GORE STITCHER-Thelma Monge RN RN eb1 Rebecca Payne RN RN jw7 María Bills RN RN nj1 Mike Zamora MD MD ec2 Corrections: (The following items were deleted from the chart) 09/20 18:56 18:56 Abdomen Pelvis W Con+CT.RAD.BRZ ordered. EDAZ EDMS 19:38 19:37 Skin: abscess, that is moderate sized, of the gluteal cleft, with induration, kb kb 22:22 21:38 Telemetry/MedSurg (observation) eb1 22:22 21:38 kb eb1
[2023-09-21] MEDS ORDERED: ACETAMINOPHEN 500 MG TAB PO PRN (21:41)
[2023-09-21] MEDS ORDERED: ONDANSETRON 4 MG/2 ML VIAL IV PRN (21:41)
--- NOTE | 2023-09-21 21:45 | P.HP ---
Certification for Inpatient Patient admitted to: Inpatient With expected LOS: >2 Midnights Practitioner: I am a practitioner with admitting privileges, knowledge of patient current condition, hospital course, and medical plan of care. Services: Services provided to patient in accordance with Admission requirements found in Title 42 Section 412.3 of the Code of Federal Regulations Patient History Date of Service: 09/22/23 Reason for admission: Pain in the butocks History of Present Illness: 48 year old male with no significant past medical history came to the ER with pain and swelling in the right side of the buttocks which has been going on for the last 1 week and has been progressively getting worse. Denies any fevers or chills. No trauma. Started as a small swelling and has been progressively worsening Patient was assessed in the ER and was found to be abscess perianal and surgery was consulted Patient is being admitted for further management Allergies No Known Allergies Allergy (Unverified 05/17/17 11:36) Home Medications: NK [No Home Meds] 05/17/17 - Past Medical/Surgical History Diabetic: No Past Medical History: Reviewed- Non-Contributory -: hpv Past Surgical History: Reviewed- Non-Contributory -: arthroscopic left knee -: hpv sx - Family History Family History: Reviewed- Non-Contributory - Social History Smoking Status: Current some day smoker Alcohol use: No CD- Drugs: No Caffeine use: No Review of Systems 10-point ROS is otherwise unremarkable Physical Examination - Vital Signs Temperature: 98.4 F Blood Pressure: 128/76 Pulse: 78 Respirations: 18 Pulse Ox (%): 98 - Physical Exam General: Alert, In no apparent distress, Oriented x3, Cooperative HEENT: Atraumatic, Normocephalic Neck: Supple, 2+ carotid pulse no bruit Respiratory: Clear to auscultation bilaterally, Normal air movement Cardiovascular: No edema, Regular rate/rhythm, Normal S1 S2 Capillary refill: <2 Seconds Gastrointestinal: Soft and benign, W/out hepatosplenomegaly Musculoskeletal: No clubbing, No swelling Integumentary: Tenderness/swelling, Erythema, Warmth Neurological: Normal speech, Normal strength at 5/5 x4 extr, Cranial nerves 3-12 intact, Normal reflexes 2+ Lymphatics: No axilla or inguinal lymphadenopathy - Studies Laboratory Data (last 24 hrs) 09/21/23 09/21/23 19:20 19:20 WBC 11.30 H Hgb 12.4 L Hct 37.4 L Plt Count 240 Sodium 138 Potassium 4.1 BUN 17 Creatinine 1.44 H Glucose 97 Assessment and Plan - Problems (Diagnosis) (1) Perirectal abscess Onset Date: 05/18/17 Current Visit: No Status: Acute Plan: Pain control Started on IV antibiotic Surgery consulted N.p.o. past midnight Possible incision and drainage in the morning - Advance Directives Does patient have a Living Will: No Does patient have a Durable POA for Healthcare: No Time Spent Managing Pts Care (In Minutes): 54
[2023-09-21] MEDS: PIPER TAZO 3.375 GM in NA CHLORIDE 0.9% 100 ML IV SCH (22:00)
[2023-09-21] MEDS: NA CHLORIDE 0.9% 1,000 ML IV SCH (22:00)
[2023-09-21] MEDS ORDERED: NA CHLORIDE 0.9% 1,000 ML ONE (22:36)
[2023-09-21] MEDS ORDERED: HYDROCODONE/APAP 10/325 TAB ONE (22:36)
[2023-09-21] MEDS ORDERED: PIPERACIL/TAZO 3.375 GM VIAL IV ONE (22:37)
[2023-09-21] MEDS ORDERED: NA CHLORIDE 0.9% 100 ML ONE (22:39)
[2023-09-21] MEDS: HYDROCODONE/APAP 10/325 TAB PO PRN (22:47)
[2023-09-21 22:52] VITALS: BMI 26.4
[2023-09-22] MEDS ORDERED: HYDROCODONE/APAP 10/325 TAB ONE (03:30)
[2023-09-22 03:48] LABS: Absolute Eosinophils 0.1 K/uL (0-0.5); Absolute Lymphocytes (CBC) 2.5 K/uL (0.7-4.9); Absolute Monocytes 0.7 K/uL (0.1-1.3); Absolute Neutrophil 6.6 K/uL (1.8-8.0); Basophils % 0.5 % (0-1.3); Eosinophils % 1.4 % (0-4.4); Hematocrit 36.6 % (39.6-49.0); Lymphocytes % 25.2 % (15.3-44.8); MCHC 32.9 g/dL (32.0-36.0); MCV 94.4 fL (80-100); Monocytes % 6.6 % (3.3-12.3); Neutrophils % 66.3 % (41.7-73.7); Platelets 210 thou/uL (152-406); RBC Red Blood Cell Count 3.88 M/uL (4.33-5.43)
[2023-09-22 03:51] LABS: Specific Gravity 1.027 (1.005-1.030); Urine Bilirubin NEGATIVE (Negative); Urine Blood Negative (Negative); Urine Clarity Clear (Clear); Urine Color Light-Yellow (Yellow); Urine Glucose NEGATIVE (Negative); Urine Ketones NEGATIVE (Negative); Urine Microscopic Reflex YN NO UMIC; Urine Nitrite NEGATIVE (Negative); Urine Protein NEGATIVE (Negative); Urine Urobilinogen Normal (Normal); Urine pH 5.5 (5.0-7.0)
[2023-09-22 04:00] LABS: Albumin 3.7 g/dL (3.4-5.0); Anion Gap 5.4 mEq/L (5.0-15.0); Bilirubin Total 0.9 mg/dL (0.2-1.0); Globulin 3.6 g/dL (2.3-3.5); Potassium 4.4 mEq/L (3.5-5.1); Protein, Total 7.3 g/dL (6.4-8.2)
[2023-09-22] MEDS ORDERED: NA CHLORIDE 0.9% 100 ML ONE (05:47)
[2023-09-22] MEDS ORDERED: PIPERACIL/TAZO 3.375 GM VIAL IV ONE (05:47)
[2023-09-22] MEDS: ENOXAPARIN 40 MG/0.4 ML SQ SCH (09:00)
[2023-09-22] MEDS ORDERED: ONDANSETRON 4 MG/2 ML VIAL ONE ×2 (10:14→12:05)
[2023-09-22] MEDS ORDERED: MORPHINE 2 MG/ML SYR ONE (10:14)
[2023-09-22] MEDS: MORPHINE 2 MG/ML SYR IV PRN (10:30)
[2023-09-22] MEDS: Ringers Lactate 1,000 ML IV ONE (11:26)
[2023-09-22] MEDS ORDERED: LIDOCAINE 1% MPF 5 ML VIAL ONE (11:44)
[2023-09-22] MEDS ORDERED: MIDAZOLAM HCL 2 MG/2 ML INJ ONE (11:45)
[2023-09-22] MEDS ORDERED: FENTANYL CITR 100 MCG/2 ML ONE (11:45)
[2023-09-22] MEDS ORDERED: propofoL 200 MG/20 ML VIAL IV ONE (11:45)
[2023-09-22] MEDS ORDERED: KETOROLAC 30 MG/ML INJ ONE (12:05)
[2023-09-22] MEDS: METHYLENE BLUE 1% 10 ML VIAL ONE (12:21)
[2023-09-22] MEDS: BUPIVACAINE 0.25% PF 30 ML VIAL ONE (12:22)
--- NOTE | 2023-09-22 12:38 | P.OP ---
Preoperative diagnosis: Perirectal Abscess Postoperative diagnosis: Perirectal Abscess Primary procedure: Exam under anesthesia Secondary procedure: Incision and drainage of perirectal abscess Anesthesia: GETA + Local Estimated blood loss: <5cc Specimen: Cultures Findings: no fistula noted Complications: None Transferred to: Recovery Room Condition: Good
--- NOTE | 2023-09-22 13:23 | OP ---
Date of Procedure: 09/22/2023 Surgeon: Yash Diaz MD, Preoperative Diagnosis: Perirectal abscess. Postoperative Diagnosis: Perirectal abscess. Procedures Performed: 1.Exam under anesthesia. 2.Incision and drainage of perirectal abscess at approximately the 9 o'clock position. Anesthesia: General endotracheal plus local with 0.25% Marcaine. Estimated Blood Loss: 5 cc. Specimen: Culture sent for both aerobic and anaerobic speciation. Findings: No fistula noted on anoscopy. Complication: None. Disposition: Patient transferred to the recovery room in good condition. Procedure In Detail: After informed consent was obtained, patient was brought to the operating room, prepped and draped in the usual sterile fashion after adequate anesthesia was achieved. A perirecta l abscess was appreciated as the patient was in lithotomy position at approximately the 9 o'clock pos ition. This area was injected with methylene blue. At this point, I placed the anoscope into the an al canal after being appropriately lubricated and did not see any evidence of leakage or fistulous co nnections after palpation of the area. At this point, I made an incision overlying the abscess and i mmediately abscess material was appreciated. Culture was sent for both aerobic and anaerobic speciat ion, at this time. I digitized the tract, finding it to have tracked towards the midline all the way to the 12 o'clock position and slightly down to approximately the 8 o'clock position. After multilo culations were broken up, the area was copiously irrigated. Hemostasis was easily achieved with mini mal electrocautery. At this point, the area was copiously irrigated once again and then the wound wa s packed with 0.25 inch Vashe soaked gauze and a sterile dressing placed over top. The patient adilson ated the procedure without incident or complications, transferred to the PACU in good condition. All counts were correct at the end of the case. BERNICE/MODL Voice ID: [id number] Report ID: [id number]
[2023-09-22 13:53] VITALS: O2SAT 98
--- NOTE | 2023-09-22 16:01 | P.PN ---
Subjective Date of Service: 09/22/23 Chief Complaint: Pain in the butocks Patient reports intermittent pain in the perineal area.. No recorded fever. Physical Examination - Vital Signs Temperature: 97.4 F Blood Pressure: 125/78 Pulse: 81 Respirations: 16 Pulse Ox (%): 97 - Studies Laboratory Data (last 24 hrs) 09/21/23 09/21/23 19:20 19:20 WBC 11.30 H Hgb 12.4 L Hct 37.4 L Plt Count 240 Sodium 138 Potassium 4.1 BUN 17 Creatinine 1.44 H Glucose 97 Assessment And Plan - Plan Physical Exam General: Alert, In no apparent distress, Oriented x3, Cooperative HEENT: Atraumatic, Normocephalic Neck: Supple, 2+ carotid pulse no bruit Respiratory: Clear to auscultation bilaterally, Normal air movement Cardiovascular: No edema, Regular rate/rhythm, Normal S1 S2 Capillary refill: <2 Seconds Gastrointestinal: Soft and benign, W/out hepatosplenomegaly Musculoskeletal: No clubbing, No swelling Integumentary: Tenderness/swelling, Erythema, Warmth Neurological: Normal speech, Normal strength at 5/5 x4 extr, Cranial nerves 3-12 intact, Normal reflexes 2+ Lymphatics: No axilla or inguinal lymphadenopathy Assessment and Plan Perirectal abscess Status post I&D by surgery Dr. Diaz. Continue broad-spectrum antibiotics. Analgesics as needed Follow deep tissue wound culture. Chronic kidney disease stage III Monitor renal function given IV contrast use. IV hydration. DVT prophylaxis: Lovenox
[2023-09-23 06:48] LABS: Anion Gap 5.3 mEq/L (5.0-15.0); Potassium 4.3 mEq/L (3.5-5.1)
--- NOTE | 2023-09-23 09:57 | P.DS ---
Admission Date: 09/21/23 Discharge Date: 09/23/23 Disposition: ROUTINE DISCHARGE Discharge Condition: GOOD Reason for Admission: Pain in the butocks - Problems (1) Acute kidney injury Status: Acute (2) Perirectal abscess Onset Date: 05/18/17 Status: Acute Brief History of Present Illness: 48 year old male with no significant past medical history came to the ER with pain and swelling in the right side of the buttocks of 1 week duration. It started as a small swelling and got worse, denied any fevers or chills or trauma. Patient was assessed in the ER and was found to have abscess perianal. Surgery was consulted for I&D and patient admitted for further management. Hospital Course: Patient was admitted to the medical floor, seen by surgeon Dr. Diaz who performed incision and drainage. Patient was monitored overnight on IV antibiotics, pain controlled. Vitals have been stable. Patient serum creatinine was elevated on presentation. Serum creatinine normalized with IV fluid. Patient is deemed clinically stable for discharge by Dr. Diaz. Dr. Diaz plans to follow-up patient in the office within 1 week. Vital Signs/Physical Exam: Temp Pulse Resp BP Pulse Ox 97.9 F 69 20 128/69 100 09/23/23 04:00 09/23/23 04:00 09/23/23 04:00 09/23/23 04:00 09/23/23 04:00 General: Alert, In no apparent distress, Oriented x3 HEENT: Mucous membr. moist/pink Neck: Supple, JVD not distended Respiratory: Clear to auscultation bilaterally, Normal air movement Cardiovascular: No edema, Regular rate/rhythm, Normal S1 S2 Gastrointestinal: Normal bowel sounds, Soft and benign, Non-distended, No tenderness Musculoskeletal: No swelling Neurological: Normal strength at 5/5 x4 extr Laboratory Data at Discharge: WBC 10.00 thou/uL (4.3-10.9) 09/22/23 02:54 Hgb 12.0 g/dL (13.6-17.9) L 09/22/23 02:54 Hct 36.6 % (39.6-49.0) L 09/22/23 02:54 Plt Count 210 thou/uL (152-406) 09/22/23 02:54 Sodium 136 mEq/L (136-145) 09/23/23 05:45 Potassium 4.3 mEq/L (3.5-5.1) 09/23/23 05:45 BUN 16 mg/dL (7-18) 09/23/23 05:45 Creatinine 1.09 mg/dL (0.70-1.30) 09/23/23 05:45 Glucose 118 mg/dL (74-106) H 09/23/23 05:45 Total Bilirubin 0.9 mg/dL (0.2-1.0) 09/22/23 02:54 AST 17 U/L (15-37) 09/22/23 02:54 ALT 24 U/L (16-61) 09/22/23 02:54 Alkaline Phosphatase 39 U/L (45-117) L 09/22/23 02:54 Home Medications: Amox/Clavulanate [Augmentin 875-125 Tab] 1 each PO BID #20 tab 09/23/23 Hydrocodone 10/APAP 325 [Keene 10/325*] 1 tab PO Q4H PRN #20 tab 09/23/23 New Medications: Amox/Clavulanate [Augmentin 875-125 Tab] 1 each PO BID #20 tab Hydrocodone 10/APAP 325 [Keene 10/325*] 1 tab PO Q4H PRN #20 tab PRN Reason: Pain Scale 8-10 (Severe) Diet: Regular Activity: No lifting more than 10 lbs Followup: Reynaldo Simpson MD [Primary Care Provider] - Yash Diaz MD [ACTIVE - CAN ADMIT] - 1 Week Time spent managing pt's care (in minutes): 32
[2023-09-23 10:45] VITALS: BP 133/67; TEMP 98
== END 2023-09-23 12:02 | disposition home or self-care (01) | DRG 345 ==
LOC: ER 16:41 → ERHOLD 21:41 → 4TH 09-22 12:36
PROVIDERS: ADMIT Family Medicine; ATTEND Internal Medicine
PROC: 0D9P8ZZ Drainage of Rectum, Via Natural or Artificial Opening Endoscopic (ICD-10-PCS; principal; 2023-09-22 11:30)
DX: K61.1 Rectal abscess (principal); N17.9 Acute kidney failure, unspecified; N18.30 Chronic kidney disease, stage 3 unspecified; F17.210 Nicotine dependence, cigarettes, uncomplicated
CPT/HCPCS: 36415; 74177; 80048; 80053; 81003; 85025; 87070; 87075; 87077; 87186; 87205; 96365; 99285; J1650; J2001; J2250; J2270; J2405; J2543; J2704; J3010; J7030; J7120; Q9967